=== PATIENT | male | born 1960 | race Caucasian/White ===

== ENCOUNTER 2017-11-02 08:19 | Emergency (ER) | payer OTHER ==
[~2017-11-02] VITALS: Ht 172.7 cm; Wt 129.3 kg
[~2017-11-02 08:19] MED LIST: BENICAR HCT 12.1 TAB PO; BYSTOLIC 5MG5 MG PO; CIPRO 500MG TA500 MG PO; CIPRO500 M1 PO; FLAG500 PO; FLAGYL500 MG PO; GLUMETZA1000 MG PO; IBUPROFEN800 M1 PO; METRONIDAZOLE500 MG PO; TRAMADOL50 MG PO; VICODIN 500 MG-1 TAB PO; VYTORIN 10 MG-11 TAB PO
[2017-11-02 09:00] LABS: ABSOLUTE BASOPHIL COUNT 0 /CUMM (0.0-0.2); ABSOLUTE EOSINOPHIL COUNT 0.4 /CUMM (0.0-0.7); ABSOLUTE GRANULOCYTE CT 4.7 /CUMM (1.4-6.5); ABSOLUTE LYMPH COUNT 1.8 /CUMM (1.2-3.4); ABSOLUTE MONOCYTE COUNT 0.7 /CUMM (0.10-0.60); BASOPHIL % 0.5 % (0.0-2.0); EOSINOPHIL % 5.5 % (0-5); GRANULOCYTE % 61.5 % (42.2-75.2); HEMATOCRIT 47.6 % (42-52); MEAN CORPUSCULAR HGB 30.7 PG (27.0-31.0); MEAN CORPUSCULAR HGB CONC 33.9 G/DL (33.0-37.0); MEAN CORPUSCULAR VOLUME 90.5 FL (80.0-94.0); MEAN PLATELET VOLUME 8.1 FL (7.4-10.4); PLATELET COUNT 218 /CUMM (130-400); RBC DISTRIBUTION WIDTH 12.9 % (11.5-14.5); RED BLOOD CELL CT 5.26 /CUMM (4.70-6.10); WHITE BLOOD CELL COUNT 7.7 /CUMM (4.8-10.8)
--- NOTE | 2017-11-02 09:03 | RADIOLOGY REPORT ---
EXAMINATION: XR CHEST CLINICAL INFORMATION: Chest pain. Cough. COMPARISON: 10/02/2016 TECHNIQUE: 2 views of the chest were obtained. FINDINGS: The lungs are well expanded. There is no focal consolidation, edema, or effusion. No pneumothorax. The cardiomediastinal silhouette is within normal limits. No acute osseous abnormality. Degenerative changes in the spine. IMPRESSION: No acute pulmonary findings.
[2017-11-02 09:10] LABS: PT 11.4 SEC (9.4-12.5); PTT 46 SEC (25-37)
--- NOTE | 2017-11-02 09:20 | ED CARDIAC/CP/PALPITATIONS ---
History of Present Illness General Chief Complaint: Chest Pain Stated Complaint: TIGHTNESS IN CHEST; DIFF SWALLOWING; "HEARTBURN" Source: patient, old records Exam Limitations: no limitations Vital Signs & Intake/Output Vital Signs & Intake/Output Vital Signs Date Time Temp Pulse Resp B/P B/P Pulse O2 O2 Flow FiO2 Mean Ox Delivery Rate 11/02 1001 98.0 76 20 184/77 100 Room Air 11/02 0910 96 Room Air Room Air 11/02 0850 97.0 80 188/100 11/02 0832 98.3 83 20 198/96 96 Room Air Allergies Coded Allergies: NO KNOWN ALLERGIES (06/08/14) Reconcile Medications Amlodipine Besylate 2.5 MG TABLET 1 TAB PO DAILY HEART (Reported) Aspirin (Ecotrin*) 81 MG TABLET.DR 1 TAB PO DAILY HEART HEALTH (Reported) Atorvastatin Calcium 20 MG TABLET 1 TAB PO DAILY CHOLESTEROL (Reported) Cholecalciferol (Vitamin D3) (Vitamin D3) 5,000 UNIT TABLET 1 TAB PO DAILY VITAMIN SUPPORT (Reported) Cyanocobalamin (Vitamin B-12) (B-12 Dots) 500 MCG TABLET 1 TAB PO DAILY VITAMIN SUPPORT (Reported) Dabigatran Etexilate Mesylate (Pradaxa 150 MG) 150 MG CAPSULE 1 CAP PO BID BLOOD THINNER (Reported) Dapagliflozin Propanediol (Farxiga) 10 MG TABLET 1 TAB PO DAILY DIABETES ( Reported) Dulaglutide (Trulicity) 0.75 MG/0.5 ML PEN.INJCTR 1 INJ SC QW DIABETES ( Reported) [GI cocktail] 5-10 ML PO Q6P PRN relux 1:1:1 viscous lidocaine:benadryl:maalox Glucosam HCl/Chondro Harris A/C/Mn (Glucosamine-Chondroitin Cap) 1 EACH CAPSULE 1 CAP PO DAILY SUPPLEMENT (Reported) Losartan Potassium 100 MG TABLET 1 TAB PO DAILY HEART (Reported) Metoclopramide HCl (Reglan) 10 MG TABLET 1 TAB PO 4 TIMES/DAY PRN reflux 30 minutes before meals and bedtime Ubidecarenone (Co Q-10) 100 MG CAPSULE 1 CAP PO DAILY SUPPLEMENT (Reported) Vitamin B Complex (Super B-50 Complex) 1 EACH CAPSULE 1 CAP PO DAILY VITAMIN SUPPORT (Reported) Vitamin E Acetate (Vitamin E) 400 UNIT CAPSULE 1 CAP PO DAILY SUPPLEMENT ( Reported) Core Measure Meds Pre-Hospital pradaxa Triage Note: PT TO ED C/O MID UPPER CHEST PAIN SINCE 1999 LAST NIGHT. STATES IT FEELS LIKE THERE IS SOMETHING IN HIS THROAT. C/O BURNING TYPE PAIN. PT SEE'S DR PERDOMO. HAS H/O AFIB (ON PRADAXA) AND STABLE AAA WHICH PT STATES IS CHECKED EVERY 90 DAYS. EKG DONE. TAKEN TO ROOM 7 FOR PROVIDER KARIN. Triage Nurses Notes Reviewed? yes Onset: Evening Duration: hour(s):, constant, continues in ED Timing: recent history Quality/Severity: moderate, burning, pressure, tightness Location: epigastric Radiation: substernal Activities at Onset: rest Prior Chest Pain/Card Workup: cardiac cath, echocardiography, stress test Modifying Factors: Worsens With: eating. Nitro Today/Relief: no nitro taken today Aspirin Today: no aspirin today Associated Symptoms: abdominal pain HPI: 1 day prior to admission after lunchtime patient began drinking twisted tea total 36 ounces. He later complains of epigastric/upper chest burning tightness associated with burping anorexia indigestion. He denies fever chills vomiting diarrhea shortness of breath headache dysuria rash bleeding. Past History Travel History Traveled to [place] past 21 day No Medical History Any Pertinent Medical History? see below for history Neurological: NONE EENT: NONE Cardiovascular: aortic aneurysm, AFIB, hypertension, hyperlipidemia Respiratory: COPD Gastrointestinal: diverticulitis Hepatic: NONE Renal: NONE Musculoskeletal: NONE Psychiatric: NONE Endocrine: NIDDM Blood Disorders: NONE Cancer(s): NONE Surgical History Surgical History: N Psychosocial History Who do you live with Family What is your primary language Paraguayan Tobacco Use: Quit >30 days ago ETOH Use: occasional use Illicit Drug Use: denies illicit drug use Family History Hx Contributory? No Review of Systems Review of Systems Constitutional: Reports: no symptoms. EENTM: Reports: no symptoms. Respiratory: Reports: no symptoms. Cardiovascular: Reports: see HPI. GI: Reports: see HPI, abdominal pain, bloating, nausea. Genitourinary: Reports: no symptoms. Musculoskeletal: Reports: no symptoms. Skin: Reports: no symptoms. Neurological/Psychological: Reports: no symptoms. Hematologic/Endocrine: Reports: no symptoms. Immunologic/Allergic: Reports: no symptoms. All Other Systems: Reviewed and Negative Physical Exam Physical Exam General Appearance: well developed/nourished, alert, awake, anxious, mild distress, obese Head: atraumatic, normal appearance Eyes: Bilateral: normal appearance, PERRL, EOMI. Ears, Nose, Throat: normal pharynx, normal ENT inspection, hearing grossly normal, moist mucus membranes Neck: normal inspection, supple, full range of motion, no midline tenderness Respiratory: normal breath sounds, chest non-tender, no respiratory distress, quiet respiration, lungs clear Cardiovascular: regular rate/rhythm, normal peripheral pulses, norml femoral pulses equa Peripheral Pulses: 4+ carotid (R), 4+ carotid (L) Gastrointestinal: normal bowel sounds, soft, non-tender, no organomegaly Back: normal inspection, normal range of motion, no vertebral tenderness Extremities: normal inspection, normal capillary refill, normal range of motion, no edema Neurologic/Psych: no motor/sensory deficits, awake, alert, oriented x 3, normal gait, normal mood/affect, 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 Skin: intact, normal color, warm/dry Lymphatic: no anterior cervical sushant Core Measures ACS in differential dx? Yes No ASA d/t Pharmacological CI CVA/TIA Diagnosis No Sepsis Present: No Sepsis Focused Exam Completed? No Progress Differential Diagnosis: AMI, costochondritis, hypovolemia, musculoskeletal pain, pancreatitis, PUD/GERD Plan of Care: Orders Procedure Date/time Status TROPONIN LEVEL 11/02 0843 Complete PARTIAL THROMBOPLASTIN TIME 11/02 0843 Complete PROTHROMBIN TIME 11/02 0843 Complete LIPASE 11/02 0843 Complete COMPREHENSIVE METABOLIC PANEL 11/02 0843 Complete CBC WITHOUT DIFFERENTIAL 11/02 0843 Complete EKG 11/02 0820 Active Laboratory Tests 11/02/17 0848: Anion Gap 13, Estimated GFR > 60, BUN/Creatinine Ratio 20.0, Glucose 119 H, Calcium 11.0 H, Total Bilirubin 0.5, AST 22, ALT 41, Alkaline Phosphatase 48, Troponin I < 0.01, Total Protein 7.3, Albumin 4.5, Globulin 2.8, Albumin/ Globulin Ratio 1.6, Lipase 122, PT 11.4, INR 1.09, APTT 46 H, CBC w Diff NO MAN DIFF REQ, RBC 5.26, MCV 90.5, MCH 30.7, RDW 12.9, MPV 8.1, Gran % 61.5, Lymphocytes % 23.6, Monocytes % 8.9, Eosinophils % 5.5 H, Basophils % 0.5, Absolute Granulocytes 4.7, Absolute Lymphocytes 1.8, Absolute Monocytes 0.7 H, Absolute Eosinophils 0.4, Absolute Basophils 0, PUBS MCHC 33.9 Diagnostic Imaging: Viewed by Me: Radiology Read. Discussed w/RAD: Radiology Read. CXR Impression: no acute abnormality, no infiltrates Initial ED EKG: normal axis, normal intervals, normal p-waves, normal QRS complex, normal sinus rhythm, no ST T wave changes Prior EKG: unchanged Rhythm Strip: normal sinus rhythm Comments: Much improved after interventions Departure Departure Time of Disposition: 1057 Disposition: HOME OR SELF CARE Condition: Stable Clinical Impression Primary Impression: GERD (gastroesophageal reflux disease) Referrals: Josie King MD (PCP/Family) Departure Forms: Customer Survey General Discharge Information Prescriptions: Current Visit Scripts Metoclopramide HCl (Reglan) 1 TAB PO 4 TIMES/DAY PRN reflux #120 TAB 30 minutes before meals and bedtime [GI cocktail] 5-10 ML PO Q6P PRN relux #240 ML 1:1:1 viscous lidocaine:benadryl:maalox Critical Care Note Critical Care Note Critical Care Time: non-applicable
[2017-11-02] MEDS ORDERED: GLUCOSAMINE-CH1 EACH PO (09:35)
[2017-11-02] MEDS ORDERED: VITAMIN E400 UNI4 PO (09:35)
[2017-11-02] MEDS ORDERED: CO Q-10100 MG PO (09:36)
[2017-11-02] MEDS ORDERED: B-12 DOTS500 MCG PO (09:36)
[2017-11-02] MEDS ORDERED: VITAMIN D35000 UNI1 PO (09:37)
[2017-11-02] MEDS ORDERED: SUPER B-50 COM1 EACH PO (09:37)
[2017-11-02] MEDS ORDERED: PRADAXA150 M1 PO (09:38)
[2017-11-02] MEDS ORDERED: LOSARTAN POTAS100 M1 PO (09:38)
[2017-11-02] MEDS ORDERED: FARXIGA10 M1 PO (09:38)
[2017-11-02] MEDS ORDERED: AMLODIPINE BES2.5 M1 PO (09:38)
[2017-11-02] MEDS ORDERED: ASPIRIN EC81 M1 PO (09:39)
[2017-11-02] MEDS ORDERED: ATORVASTATIN CA20 M1 PO (09:39)
[2017-11-02] MEDS ORDERED: TRULICITY0.75 MG/01 SC (10:58)
[2017-11-02] MEDS ORDERED: REGLAN10 M1 PO (11:02)
[2017-11-02] MEDS ORDERED: GI cocktail PO (11:02)
[2017-11-02 11:21] VITALS: BP 174/79
== END 2017-11-02 11:31 ==
LOC: ERH 08:19
PROVIDERS: Emergency Medicine
DX: K21.9 Gastro-esophageal reflux disease without esophagitis (principal)
CPT/HCPCS: 71046; 93005; 93010; 96365; 96375; J2765

== ENCOUNTER 2018-07-16 14:51 | Emergency (ER) | payer OTHER ==
[~2018-07-16] VITALS: Ht 172.7 cm; Wt 131.5 kg
[~2018-07-16 14:51] MED LIST changes: +AMLODIPINE BES2.5 M1 PO; +ASPIRIN EC81 M1 PO; +ATORVASTATIN CA20 M1 PO; +AUGMENTIN 875-1 EACH PO; +B-12 DOTS500 MCG PO; +CO Q-10100 MG PO; +FARXIGA10 M1 PO; +GI cocktail PO; +GLUCOSAMINE-CH1 EACH PO; +LOSARTAN POTAS100 M1 PO; +PRADAXA150 M1 PO; +REGLAN10 M1 PO; +SUPER B-50 COM1 EACH PO; +TRULICITY0.75 MG/01 SC; +VITAMIN D35000 UNI1 PO; +VITAMIN E400 UNI4 PO
[2018-07-16 15:40] LABS: ABSOLUTE BASOPHIL COUNT 0.1 /CUMM (0.0-0.2); ABSOLUTE EOSINOPHIL COUNT 0.5 /CUMM (0.0-0.7); ABSOLUTE GRANULOCYTE CT 4.9 /CUMM (1.4-6.5); ABSOLUTE LYMPH COUNT 1.9 /CUMM (1.2-3.4); ABSOLUTE MONOCYTE COUNT 0.7 /CUMM (0.10-0.60); BASOPHIL % 0.6 % (0.0-2.0); EOSINOPHIL % 5.7 % (0-5); GRANULOCYTE % 61.2 % (42.2-75.2); MEAN CORPUSCULAR HGB 30.6 PG (27.0-31.0); MEAN CORPUSCULAR HGB CONC 33.2 G/DL (33.0-37.0); MEAN CORPUSCULAR VOLUME 92.2 FL (80.0-94.0); MEAN PLATELET VOLUME 8.1 FL (7.4-10.4); PLATELET COUNT 221 /CUMM (130-400); RBC DISTRIBUTION WIDTH 13.3 % (11.5-14.5); RED BLOOD CELL CT 5.09 /CUMM (4.70-6.10)
--- NOTE | 2018-07-16 15:45 | ED CARDIAC/CP/PALPITATIONS ---
History of Present Illness General Chief Complaint: Chest Pain Stated Complaint: SIB DR PERDOMO CP Source: patient Exam Limitations: no limitations Vital Signs & Intake/Output Vital Signs & Intake/Output Vital Signs Date Time Temp Pulse Resp B/P B/P Pulse O2 O2 Flow FiO2 Mean Ox Delivery Rate 07/16 1900 98.0 102 18 138/90 96 Room Air 07/16 1645 Room Air 07/16 1501 98.1 122 20 118/73 96 Room Air Allergies Coded Allergies: NO KNOWN ALLERGIES (06/08/14) Reconcile Medications Amlodipine Besylate 2.5 MG TABLET 1 TAB PO DAILY HEART (Reported) Aspirin (Ecotrin*) 81 MG TABLET.DR 1 TAB PO DAILY HEART HEALTH (Reported) Cholecalciferol (Vitamin D3) (Vitamin D3) 5,000 UNIT TABLET 1 TAB PO DAILY VITAMIN SUPPORT (Reported) Cyanocobalamin (Vitamin B-12) (B-12 Dots) 500 MCG TABLET 1 TAB PO DAILY VITAMIN SUPPORT (Reported) Dabigatran Etexilate Mesylate (Pradaxa 150 MG) 150 MG CAPSULE 1 CAP PO BID BLOOD THINNER (Reported) Dapagliflozin Propanediol (Farxiga) 10 MG TABLET 1 TAB PO DAILY DIABETES ( Reported) Furosemide 20 MG TABLET 1 TAB PO DAILY DIUREITC (Reported) Losartan Potassium 100 MG TABLET 1 TAB PO DAILY HEART (Reported) Metoclopramide HCl (Reglan) 10 MG TABLET 1 TAB PO 4 TIMES/DAY PRN reflux 30 minutes before meals and bedtime Metoprolol Succinate 25 MG TAB 1.5 TAB PO QAM HEART/BP (Reported) Ubidecarenone (Co Q-10) 100 MG CAPSULE 1 CAP PO DAILY SUPPLEMENT (Reported) Vitamin B Complex (Super B-50 Complex) 1 EACH CAPSULE 1 CAP PO DAILY VITAMIN SUPPORT (Reported) Triage Note: PT C/O CP YESTERDAY WITH DIAPHORESIS, WOKE UP TODAY AND THE PAIN STARTED AGAIN. STATES PAIN HAS SUBSIDED BUT HE FEELS CLAMMY AND SWEATY. PT SIB DR PERDOMO. PT STATES A LITTLE SOB Triage Nurses Notes Reviewed? yes Onset: Abrupt Duration: day(s): (1), intermittent Timing: recent history Quality/Severity: moderate, severe Radiation: no radiation HPI: 58-year-old male comes into the emergency room for further evaluation of left- sided chest pain. Symptoms have been going on since yesterday around 1:30 PM. Symptoms persisted till about 8 PM last night. He was having constant left- sided pain radiating down his left arm. Some associated diaphoresis and sweating S and some shortness of breath. Symptoms improved around 8 PM. He woke up this morning and started with the pain again around 10:30 AM. Same symptoms as last night. He was recently diagnosed with A. fib 2 months ago. He is on pradaxa and in and out of A. fib. He sees Dr. Perdomo from cardiology. He has a history of hypertension hyperlipidemia and diabetes. (Ankur Steel) Past History Medical History Any Pertinent Medical History? see below for history Neurological: NONE EENT: NONE Cardiovascular: aortic aneurysm, AFIB, hypertension, hyperlipidemia Respiratory: COPD Gastrointestinal: diverticulitis Hepatic: NONE Renal: NONE Musculoskeletal: NONE Psychiatric: NONE Endocrine: NIDDM Blood Disorders: NONE Cancer(s): NONE Surgical History Surgical History: N Psychosocial History Who do you live with Family What is your primary language Turkmen Tobacco Use: Current Not Daily Family History Hx Contributory? No (Ankur Steel) Review of Systems Review of Systems Constitutional: Reports: no symptoms. EENTM: Reports: no symptoms. Respiratory: Reports: see HPI. Cardiovascular: Reports: see HPI. GI: Reports: no symptoms. Genitourinary: Reports: no symptoms. Musculoskeletal: Reports: no symptoms. Skin: Reports: no symptoms. Neurological/Psychological: Reports: no symptoms. Hematologic/Endocrine: Reports: no symptoms. Immunologic/Allergic: Reports: no symptoms. All Other Systems: Reviewed and Negative (Ankur Steel) Physical Exam Physical Exam General Appearance: well developed/nourished, no apparent distress, alert, awake Head: atraumatic, normal appearance Eyes: Bilateral: normal appearance. Ears, Nose, Throat: normal ENT inspection, hearing grossly normal Neck: normal inspection Respiratory: no respiratory distress Cardiovascular: tachycardia, irregular Gastrointestinal: soft Back: normal inspection Extremities: normal inspection Neurologic/Psych: awake, alert Skin: intact, normal color Core Measures ACS in differential dx? Yes CVA/TIA Diagnosis No Sepsis Present: No Sepsis Focused Exam Completed? No (Ankur Steel) Progress Differential Diagnosis: AMI, musculoskeletal pain, myocarditis, pancreatitis, pericarditis, pulmonary embolism, PUD/GERD, unstable angina Plan of Care: Orders Procedure Date/time Status TROPONIN LEVEL 07/16 1830 Complete EKG 07/16 183 Active D-DIMER 07/16 1502 Complete TROPONIN LEVEL 07/16 1454 Complete COMPREHENSIVE METABOLIC PANEL 07/16 1454 Complete CBC WITHOUT DIFFERENTIAL 07/16 145 Complete EKG 07/16 1451 Active Current Medications Sig/Marilee Start time Last Medication Dose Stop Time Status Admin Ketorolac 30 MG ONCE ONE 07/16 1845 CAN Tromethamine 07/16 184 (Toradol) Laboratory Tests 07/16/18 1839: Troponin I < 0.01 07/16/18 1526: Anion Gap 10, Estimated GFR > 60, BUN/Creatinine Ratio 22.0, Glucose 130 H, Calcium 9.2, Total Bilirubin 0.5, AST 36, ALT 76 H, Alkaline Phosphatase 50, Troponin I < 0.01, Total Protein 7.1, Albumin 4.5, Globulin 2.6, Albumin/ Globulin Ratio 1.7, D-Dimer High Sensitivty < 200, CBC w Diff NO MAN DIFF REQ, RBC 5.09, MCV 92.2, MCH 30.6, MCHC 33.2, RDW 13.3, MPV 8.1, Gran % 61.2, Lymphocytes % 23.9, Monocytes % 8.6, Eosinophils % 5.7 H, Basophils % 0.6, Absolute Granulocytes 4.9, Absolute Lymphocytes 1.9, Absolute Monocytes 0.7 H, Absolute Eosinophils 0.5, Absolute Basophils 0.1 Diagnostic Imaging: Viewed by Me: Radiology Read. Discussed w/RAD: Radiology Read. Radiology Impression: PATIENT: HALLE ALSTON JR PRESENT AGE: 58 PATIENT ACCOUNT NO: [id number] : 58 LOCATION: [facility] ORDERING PHYSICIAN: Ankur NARVAEZ SERVICE DATE: 07/16/18 EXAM TYPE : RAD - XRY-CHEST XRAY, TWO VIEWS EXAMINATION: XR CHEST CLINICAL INFORMATION: Chest pain. COMPARISON: Chest 11/02/2017. TECHNIQUE: 2 views of the chest were obtained. FINDINGS: The lungs are well-expanded and clear. The cardiomediastinal silhouette is within normal limits. Is moderate spondylosis dorsal spine. No lytic process seen. IMPRESSION: No acute cardiopulmonary process seen. No change from 11/02/2017. DICTATED BY: Krystal CARLOS,Chano DATE/TIME DICTATED:07/16/181548 SHEET ROCK TAPER HELPER:MENDEZ DATE/TIME TRANSCRIBED:07/16/181548 CONFIDENTIAL, DO NOT COPY WITHOUT APPROPRIATE AUTHORIZATION. <Electronically signed in Other Vendor System> SIGNED BY: Chano Rice MD 07/16/18 1553 Initial ED EKG: rate (117), AFIB Hand-Off Endorsed To: Kb Suazo MD Endorsed Time: 1640 Pending: consult, EKG, labs Comments: 07/16/2018 5:00:11 PM Spoke with covering for cardiology. 2 troponins and 2 EKGs. If negative patient's condition can follow-up with Shaun as an outpatient. (Ankur Steel) CXR Impression: no acute abnormality Comments: 07/16/2018 7:03:36 PM I have reviewed glides prior CTA of the chest in 2014 that showed an ectatic aorta with a 4.5 cm aneurysm. 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 (Lakeisha CARLOS,Kb Last) Diagnostic Imaging: Viewed by Me: CT Scan. Discussed w/RAD: CT Scan. Prior EKG: unchanged Repeat EKG: unchanged Rhythm Strip: atrial fibrillation (Terry Fairchild MD) Departure Departure Condition: Stable Departure Forms: Customer Survey General Discharge Information (Ankur Steel) Departure Time of Disposition: 2123 Disposition: HOME OR SELF CARE Clinical Impression Primary Impression: Chest pain syndrome Secondary Impressions: Aortic aneurysm, Atrial fibrillation Referrals: Fernando CARLOS,Josie (PCP/Family) Carrie Perdomo MD PA/CRUSHER TENDER Co-Sign Statement Statement: ED Attending supervision documentation- x I saw and evaluated the patient. I have also reviewed all the pertinent lab results and diagnostic results. I agree with the findings and the plan of care as documented in the PA's/CRUSHER TENDER's documentation. [] I have reviewed the ED Record and agree with the PA's/CRUSHER TENDER's documentation. [] Additions or exceptions (if any) to the PAs/CRUSHER TENDER's note and plan are summarized below: [] (Terry Fairchild MD) Critical Care Note Critical Care Note Critical Care Time: non-applicable (Ankur Steel)
--- NOTE | 2018-07-16 15:53 | RADIOLOGY REPORT ---
EXAMINATION: XR CHEST CLINICAL INFORMATION: Chest pain. COMPARISON: Chest 11/02/2017. TECHNIQUE: 2 views of the chest were obtained. FINDINGS: The lungs are well-expanded and clear. The cardiomediastinal silhouette is within normal limits. Is moderate spondylosis dorsal spine. No lytic process seen. IMPRESSION: No acute cardiopulmonary process seen. No change from 11/02/2017.
[2018-07-16] MEDS ORDERED: METOPROLOL SUCC25 M1 PO (20:52)
[2018-07-16] MEDS ORDERED: FUROSEMIDE20 M1 PO (20:52)
--- NOTE | 2018-07-16 20:59 | CT SCAN REPORT ---
EXAMINATION: CT SCAN OF THE CHEST WITH CONTRAST CLINICAL INFORMATION: Sharp chest pain. History of aneurysm. COMPARISON: CT from 04/29/2015. TECHNIQUE: Multidetector helical imaging was performed in the axial plane following intravenous administration of 95 mL of Optiray 320. 3-D postprocessing performed at an off-line workstation. Dose is 1814.78 mGy-cm. FINDINGS: Dilatation of the ascending thoracic aorta again evident, measuring 4 cm in diameter. No dissection is seen. No mural thrombus is identified. The origins of the great vessels are preserved. The descending thoracic aorta is of normal caliber with mild atherosclerotic wall calcifications. No dissection is seen in the visualized upper abdominal aorta. The origins of the renal arteries, celiac artery, and SMA are normal. The imaged pulmonary arteries opacify normally. There are mild subsegmental atelectatic changes in the lower lobes. The central airways are patent. No focal airspace consolidation is seen. There is a small calcified granuloma in the left upper lobe. No emphysematous changes are identified. There is no bronchiectasis. Multilevel degenerative endplate Schmorl's nodes and ossific spurring noted with a thoracic kyphosis. No pericardial or pleural effusion is seen. Heart size is within normal limits. Mild scattered mediastinal lymph nodes again noted with some prominence of the subcarinal lymph nodes, measuring up to 1.5 cm in diameter and adjacent to the esophagus but without change. There is no hilar or axillary adenopathy. The thyroid gland is mildly heterogeneous. The imaged portions of the upper abdomen are unremarkable. IMPRESSION: Stable mild dilatation of the ascending thoracic aorta. No evidence of a dissection.
[2018-07-16 21:46] VITALS: BP 132/86
== END 2018-07-16 21:53 ==
LOC: ERH 14:51
PROVIDERS: Physician Assistant Medical
DX: I48.91 Unspecified atrial fibrillation (principal); I71.9 Aortic aneurysm of unspecified site, without rupture; R07.9 Chest pain, unspecified; I10 Essential (primary) hypertension; E78.5 Hyperlipidemia, unspecified; J44.9 Chronic obstructive pulmonary disease, unspecified; E11.9 Type 2 diabetes mellitus without complications
CPT/HCPCS: 71046; 93005; 93010; J0131